=== PATIENT | female | born 1975 | race Caucasian/White ===

== ENCOUNTER 2018-07-16 09:25 | Day surgery (SDC) | payer OTHER ==
[2018-07-16] MEDS ORDERED: LIDOCAINE HCL 1% MPF 30 SOL ONE ×2 (09:27→10:24)
[2018-07-16] MEDS ORDERED: FENTANYL 100MCG/2ML SOL ONE (10:03)
[2018-07-16] MEDS ORDERED: CEFAZOLIN SODIUM 1 GM PDS ONE (10:24)
[2018-07-16] MEDS ORDERED: PROPOFOL 500 MG/50 ML EMU IV ONE (10:24)
[2018-07-16] MEDS ORDERED: KETOROLAC TROMETHAMINE 30 MG/ML SOL ONE (11:17)
[2018-07-16 11:48] VITALS: BP 124/80; PULSE 73; RESP 20; TEMP 97; O2SAT 95
== END 2018-07-16 12:15 | disposition home or self-care (01) | DRG 558 ==
LOC: SURG 09:25
PROVIDERS: ATTEND Orthopaedic Surgery
DX: M65.311 Trigger thumb, right thumb (principal); M65.321 Trigger finger, right index finger; M65.331 Trigger finger, right middle finger
CPT/HCPCS: J0690; J1885; J3010; A6402; J2001; J2704

== ENCOUNTER 2018-08-13 07:57 | Day surgery (SDC) | payer OTHER ==
[2018-08-13] MEDS ORDERED: PROPOFOL 500 MG/50 ML EMU IV ONE (08:09)
[2018-08-13] MEDS ORDERED: FENTANYL 100MCG/2ML SOL ONE (08:09)
[2018-08-13] MEDS ORDERED: MIDAZOLAM 2 MG/2 ML SOL ONE (08:09)
[2018-08-13] MEDS ORDERED: CEFAZOLIN SODIUM 1 GM PDS ONE (08:49)
[2018-08-13] MEDS: LIDOCAINE HCL 1% MPF 30 SOL ONE ×2 (09:29→09:36)
[2018-08-13] MEDS ORDERED: ONDANSETRON HCL 4 MG/2 ML SOL ONE (09:30)
[2018-08-13 10:07] VITALS: RESP 16; O2SAT 96
[2018-08-13 10:19] VITALS: BP 128/85; PULSE 79; TEMP 97.7
[2018-08-13] MEDS ORDERED: KETOROLAC TROMETHAMINE 30 MG/ML SOL ONE (10:21)
== END 2018-08-13 10:58 | disposition home or self-care (01) | DRG 558 ==
LOC: SURG 07:57
PROVIDERS: ATTEND Orthopaedic Surgery
DX: M65.332 Trigger finger, left middle finger (principal)
CPT/HCPCS: J0690; J1885; J2250; J2405; J3010; J2001; J2704